=== PATIENT | male | born 1995 | race American Indian/Alaskan Native ===

== ENCOUNTER 2017-12-01 05:35 | Emergency (ER) | payer OTHER ==
[2017-12-01] MEDS ORDERED: ULTRAM PO ONE (05:50)
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
[2017-12-01] MEDS ORDERED: ZOFRAN ONE (07:05)
[2017-12-01] MEDS ORDERED: SUBLIMAZE ONE (07:06)
[2017-12-01 07:25] VITALS: BP 123/80
[2017-12-01] MEDS ORDERED: SUBLIMAZE IV ONE (07:26)
[2017-12-01] MEDS ORDERED: ZOFRAN IV ONE (07:26)
[2017-12-01] MEDS ORDERED: DILAUDID ONE (07:27)
[2017-12-01] MEDS ORDERED: DILAUDID IV ONE (07:31)
== END 2017-12-01 07:51 | disposition other institution (70) ==
LOC: ED 05:35
DX: S06.5X9A Traumatic subdural hemorrhage with loss of consciousness of unspecified duration, initial encounter (principal); S01.90XA Unspecified open wound of unspecified part of head, initial encounter; W34.00XA Accidental discharge from unspecified firearms or gun, initial encounter; Y93.89 Activity, other specified; Y92.89 Other specified places as the place of occurrence of the external cause; Y99.8 Other external cause status
CPT/HCPCS: 70450; 71045; 96374; 96375; 99285; J1170; J2405; J3010